=== PATIENT | female | born 1990 | race Caucasian/White ===

== ENCOUNTER → 2024-11-14 14:49 | Outpatient (REF) | payer BC, SELFPAY | LOC: WDC 14:49 | PROVIDERS: ATTENDING PHYSICIAN Obstetrics & Gynecology; FAMILY PHYSICIAN Family Medicine | DX: N63.15 Unspecified lump in the right breast, overlapping quadrants (principal) | CPT/HCPCS: 76642 ==

== ENCOUNTER → 2025-01-29 07:28 | Outpatient (REF) | payer OTHER, SELFPAY | LOC: OHS 07:28 | PROVIDERS: ATTENDING PHYSICIAN Nurse Practitioner Family | DX: Z23 Encounter for immunization (principal) | CPT/HCPCS: 36415; 86480; 86706 ==